=== PATIENT | female | born 1965 | race Caucasian/White ===

== ENCOUNTER 2016-03-23 09:36 | Day surgery (SDC) | payer BC ==
[2016-03-18 10:59] VITALS: BMI 24.4
[~2016-03-23 09:36] MED LIST: DEXAMETHASONE SOD PHOSPHATE 10 MG/ML 1 ML VIAL IV ONE; DEXAMETHASONE SOD PHOSPHATE 4 MG/ML 1 ML VIAL IV ONE; FAMOTIDINE 20 MG/2 ML VIAL IV ONE; LACTATED RINGERS 1,000 ML IV SCH; LIDOCAINE 1% 20 ML VIAL (10MG/ML) FOR IV START INTRADERMA PRN; ONDANSETRON 4 MG/2 ML VIAL IVP ONE; SCOPOLAMINE 1.5MG/72HR PATCH TRANSDERM ONE; ceFAZolin 1,000 MG in DEXTROSE/WATER 1 50ML.BAG IV ONE
[2016-03-23] MEDS ORDERED: LIDOCAINE 1% 20 ML VIAL (10MG/ML) FOR IV START INTRADERMA ONE (11:29)
[2016-03-23] MEDS: OXYMETAZOLINE 0.05% NASL SPRAY 15 ML NASAL ONE ×4 (11:30→11:45)
[2016-03-23] MEDS ORDERED: MIDAZOLAM 2 MG/2 ML VIAL ONE (11:46)
[2016-03-23] MEDS ORDERED: fentaNYL (PF) 50 MCG/ML 2 ML AMP ONE (11:46)
[2016-03-23] MEDS ORDERED: PROPOFOL 10 MG/ML 20 ML VIAL IV ONE (11:46)
[2016-03-23] MEDS ORDERED: LIDOCAINE 1% INJ 10MG/ML (20 ML MDV) ONE (11:46)
[2016-03-23] MEDS ORDERED: SUCCINYLCHOLINE CHLORIDE 100 MG/5 ML SYR IV ONE (11:46)
[2016-03-23] MEDS ORDERED: LIDOCAINE 1%-EPI 1:100,000 20 ML VIAL SUBMUCOSAL ONE (12:09)
--- NOTE | 2016-03-23 12:57 | P.OP ---
Date of Procedure: 03/23/16 Preoperative Diagnosis: Deviated nasal septum Inferior turbinate hypertrophy Chronic sinusitis Postoperative Diagnosis: Same Procedure(s) Performed: Septoplasty Outfracture and submucous resection of the inferior turbinates Bilateral endoscopic sinus surgery including bilateral maxillary antrostomy and left ra bullectomy Anesthesia: TIO Surgeon: Abdoulaye Bower Estimated Blood Loss (ml): 10 Pathology: other (Nasal septal bone and cartilage and sinus contents) Condition: stable Disposition: PACU Indications for Procedure: This is a 50-year-old white female whose had difficulties with chronic nasal airway obstruction and congestion as well as intermittent bilateral maxillary pain and pressure but left greater than right Operative Findings: Bilateral nasal septal deviation, inferior turbinate hypertrophy, obstruction of both maxillary ostia and 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 The patient underwent induction of general anesthesia with oral endotracheal intubation without difficulty. Patient prepped and draped in usual aseptic fashion. 1% lidocaine with [id number] epinephrine was infused submucosally both sides nasal septum lateral nasal wall and anterior tips the middle turbinates bilaterally. The orbits were in the operating field for monitoring throughout the case and computed tomography scan was on the computer screen for review throughout the case also. The inferior turbinates were infractured with the Raymond elevator partial submucous resection inferior turbinates was performed bilaterally with the Coblation device therefore ablating a portion of the submucosal soft tissue and then the inferior turbinates were outfractured with the Raymond elevator. A left hemitransfixion incision was made and mucoperichondrial mucoperiosteal flap on the left elevated. Bony cartilaginous junction was disarticulated and mucoperiosteal flap on the right was elevated. Bony nasal septal deformities were removed Delfina forceps and an inferior cartilaginous strip was removed leaving a full 1.5 cm caudal strut. Checking intranasally this corrected the nasoseptal deformities and the hemitransfixion incision was closed running 4-0 chromic suture. 0 endoscopic examination is performed bilaterally. Beginning on the left the middle turbinate was medialized with the Walton elevator. There was a ra bullosa cell noted and the lateral one half of the middle turbinate was removed with microdebrider. Natural ostium was located with a ballpoint probe and infundibulotomy was performed followed by uncinectomy. Maxillary antrostomy was enlarged at the expense of the anterior posterior fontanelle taking care anteriorly not to injure the lacrimal bone. The ethmoid bulla was overhanging and therefore this was also opened. Attention was then turned to the right where the middle turbinate was medialized with the Walton elevator. Maxillary antrostomy was performed as it was on the left as well as the infundibulotomy and uncinectomy. Once this was completed a pledget of nasal pore nasal dressing was white middle meatus under direct visualization and bilateral Bardales airway splints coated bacitracin ointment were placed in nasal cavities and sutured trans-septally with a 4-0 nylon suture. The patient was suctioned in oral gastric fashion. Beta katarzyna emerge from general anesthesia having tolerated the procedure well was extubated operating suite and transferred to postop recovery area in satisfactory condition.
[2016-03-23 12:59] VITALS: TEMP 97.4
[2016-03-23] MEDS: HYDROmorphone 1 MG/ML 1 ML SYRINGE IVP PRN ×2 (13:14→13:31)
[2016-03-23 13:17] VITALS: RESP 16
[2016-03-23 15:00] VITALS: BP 133/85; PULSE 79
[2016-03-23] MEDS ORDERED: HYDROcodone/APAP 7.5-325MG 1 EACH TAB PO ONE (15:10)
== END 2016-03-23 15:49 | disposition home or self-care (01) ==
LOC: OR 09:36
PROVIDERS: ATTEND Otolaryngology
DX: J34.2 Deviated nasal septum (principal); J34.3 Hypertrophy of nasal turbinates; J32.9 Chronic sinusitis, unspecified; Z79.2 Long term (current) use of antibiotics; Z79.1 Long term (current) use of non-steroidal anti-inflammatories (NSAID); Z79.899 Other long term (current) drug therapy; Z87.891 Personal history of nicotine dependence
CPT/HCPCS: 81025; 88305; 88300; 30520; 30140; 31256; J2250; J1100; J2405; J2001; J3010; J1170; J0690; J0330; J2704

== ENCOUNTER → 2017-05-17 | Outpatient (CLI) | payer BC ==
--- NOTE | 2017-05-18 16:14 | BD ---
EXAMINATION TYPE: MG DEXA axial skeleton. DATE OF EXAM: 05/17/2017 COMPARISON: NONE CLINICAL HISTORY: 51-year-old female postmenopausal screening, osteoarthritis Height: 5 FT 1/2IN Weight: 130 FRAX RISK QUESTIONS: Alcohol (3 or more units per day): NO Family History (Parent hip fracture): NO Glucocorticoids (More than 3mos): NO (Ex: prednisone, prednisolone, methylprednisolone, dexamethasone, and hydrocortisone). History of Fracture in Adulthood: NO Secondary Osteoporosis: 1. Type 1 Diabetes: NO 2. Hyperthyroidism: NO 3. Menopause before 45: NO 4. Malnutrition: NO 5. Chronic liver disease: NO Rheumatoid Arthritis: NO Current Tobacco Use: NO RISK FACTORS HISTORY OF: Family History of Osteoporosis: YES Active: YES Postmenopausal woman: NO If Premenopausal, do you have irregular periods: YES MEDICATIONS: Thyroid Medications: YES Which medication: LEVOTHYROXINE How Lon YEAR Additional Medications: LEVOTHYROXINE Additional History: EXAM MEASUREMENTS: Bone mineral densitometry was performed using the [employer]. Bone mineral density as measured about the Lumbar spine is: ----- L1-L4(G/cm2): 0.988 T Score Values are as follows: ----- L2: -1.3 ----- L3: -1.7 ----- L4: -2.1 ----- L1-L4: -1.6 BASELINE Bone mineral density about the R hip (g/cm2): 0.804 Bone mineral density about the L hip (g/cm2): 0.762 T Score values are as follows: -----R Neck: -1.7 -----L Neck: -2.0 -----R Total: -1.3 -----L Total: -1.6 BASELINE IMPRESSION: Osteopenia (T Score between -2.5 and -1). There is slightly increased risk of fracture and the patient may be considered for treatment. Re-Screen 2-5 years. NOTE: T-SCORE=SD OF THE YOUNG ADULT MEAN.
--- NOTE | 2017-05-19 09:57 | MM ---
Reason for exam: screening (asymptomatic). Last mammogram was performed 2 years ago. History: Took hormonal contraceptives for 15 years. Physical Findings: A clinical breast exam by your physician is recommended on an annual basis and results should be correlated with mammographic findings. MG Screening Mammo Implant/CAD Bilateral CC, MLO, and ID view(s) were taken. Prior study comparison: May 13, 2015, bilateral MG screening mammo implant/CAD. September 08, 2009, bilateral digital screening mammogram. The breast tissue is heterogeneously dense. This may lower the sensitivity of mammography. Bilateral retropectoral silicome implants. No significant changes when compared with prior studies. ASSESSMENT: Negative, BI-RAD 1 RECOMMENDATION: Routine screening mammogram of both breasts in 1 year.
== END | disposition home or self-care (01) ==
LOC: RADMAMWWP 15:35
PROVIDERS: ATTEND Family Medicine
DX: Z12.31 Encounter for screening mammogram for malignant neoplasm of breast (principal); M85.80 Other specified disorders of bone density and structure, unspecified site
CPT/HCPCS: 77067; 77080

== ENCOUNTER → 2017-11-10 | Outpatient (CLI) | payer BC ==
[~2017-11-10] MED LIST changes: -DEXAMETHASONE SOD PHOSPHATE 10 MG/ML 1 ML VIAL IV ONE; -DEXAMETHASONE SOD PHOSPHATE 4 MG/ML 1 ML VIAL IV ONE; -FAMOTIDINE 20 MG/2 ML VIAL IV ONE; -LACTATED RINGERS 1,000 ML IV SCH; -LIDOCAINE 1% 20 ML VIAL (10MG/ML) FOR IV START INTRADERMA PRN; -ONDANSETRON 4 MG/2 ML VIAL IVP ONE; -SCOPOLAMINE 1.5MG/72HR PATCH TRANSDERM ONE; +SODIUM CHLORIDE 0.9% 500 ML in EMPTY BAG 1 BAG IV PRN; +ZOLEDRONIC ACID 5 MG in SODIUM CHLORIDE 0.9% 100 ML IV NR; -ceFAZolin 1,000 MG in DEXTROSE/WATER 1 50ML.BAG IV ONE
[2017-11-10 09:42] VITALS: BP 107/79; PULSE 80; RESP 16; TEMP 98.1
== END | disposition home or self-care (01) ==
LOC: PROCWHC3 09:01
PROVIDERS: ATTEND Family Medicine
DX: M81.0 Age-related osteoporosis without current pathological fracture (principal); M19.90 Unspecified osteoarthritis, unspecified site
CPT/HCPCS: 96365; J3489

== ENCOUNTER → 2019-07-03 | Outpatient (CLI) | payer BC ==
--- NOTE | 2019-07-03 12:00 | ECHOS ---
Referral Reason:Atypical Chest Pain R07.89 MEASUREMENTS -------- HEIGHT: 152.4 cm WEIGHT: 59.0 kg BP: RVIDd: 2.5 cm (< 3.3) IVSd: 1.0 cm (0.6 - 1.1) LVIDd: 3.4 cm (3.9 - 5.3) LVPWd: 1.1 cm (0.6 - 1.1) IVSs: 1.5 cm LVIDs: 2.2 cm LVPWs: 1.6 cm LAESV Index (A-L): 12.54 ml/m Ao Diam: 2.7 cm (2.0 - 3.7) AV Cusp: 2.0 cm (1.5 - 2.6) MV EXCURSION: 14.577 mm (> 18.000) MV EF SLOPE: 99 mm/s (70 - 150) EPSS: 0.3 cm MV E Blue: 0.68 m/s MV DecT: 206 ms MV A Blue: 0.65 m/s MV E/A Ratio: 1.04 RAP: 5.00 mmHg RVSP: 21.42 mmHg FINDINGS -------- Sinus rhythm. This was a technically good study. The left ventricular size is normal. Left ventricular wall thickness is normal. Overall left vent ricular systolic function is normal with, an EF between 55 - 60 %. The diastolic filling pattern is normal for the age of the patient 9.63. The right ventricle is normal in size. Normal LA size by volume 22+/-6 ml/m2. The right atrial size is normal. Interatrial and interventricular septum intact. The aortic valve is trileaflet and appears structurally normal. There is no evidence of aortic regu rgitation. There is no evidence of aortic stenosis. Mild mitral regurgitation is present. Mild tricuspid regurgitation present. There is no evidence of pulmonary hypertension. The right v entricular systolic pressure, as measured by Doppler, is 21.42mmHg. Trace/mild (physiologic) pulmonic regurgitation. The aortic root size is normal. Normal inferior vena cava with normal inspiratory collapse consistent with estimated right atrial pre ssure of 5 mmHg. There is no pericardial effusion. CONCLUSIONS -------- 1. Sinus rhythm. 2. This was a technically good study. 3. The left ventricular size is normal. 4. Left ventricular wall thickness is normal. 5. Overall left ventricular systolic function is normal with, an EF between 55 - 60 %. 6. The diastolic filling pattern is normal for the age of the patient 9.63 7. The right ventricle is normal in size. 8. Normal LA size by volume 22+/-6 ml/m2. 9. The right atrial size is normal. 10. Interatrial and interventricular septum intact. 11. The aortic valve is trileaflet and appears structurally normal. 12. There is no evidence of aortic regurgitation. 13. There is no evidence of aortic stenosis. 14. Mild mitral regurgitation is present. 15. Mild tricuspid regurgitation present. 16. There is no evidence of pulmonary hypertension. 17. The right ventricular systolic pressure, as measured by Doppler, is 21.42mmHg. 18. Trace/mild (physiologic) pulmonic regurgitation. 19. The aortic root size is normal. 20. Normal inferior vena cava with normal inspiratory collapse consistent with estimated right atrial pressure of 5 mmHg. 21. There is no pericardial effusion. HIDE HOUSE SUPERVISOR: Marylin Aden RDCS
--- NOTE | 2019-07-03 16:37 | EST ---
EXERCISE STRESS AGE: 53 SEX: F HT: 60" WT: 130 PROTOCOL: Carlos STAGE: 3 DURATION OF EXERCISE: 9:00 HEART RATE REST: 75 BLOOD PRESSURE REST: 121/82 MAXIMUM HEART RATE ACHIEVED: 157 MAXIMUM BLOOD PRESSURE: 184/86 85% MPHR: 142 100% MPHR: 167 METS: CLINICAL INFORMATION: Baseline EKG revealed normal sinus rhythm without significant ST-T changes. Minor nonspecific inferolateral ST abnormality was noted. Patient walked for 9 minutes, achieved a maximal heart rate of 157 beats per minute, developed fatigue and shortness of breath but did not have any angina or arrhythmia. EKG review did not reveal any clear-cut evidence to suggest ischemia. There are minor changes to begin with and these seemed to persist. Subjectively patient was asymptomatic. Fair exercise capacity was noted. FINAL IMPRESSION: 1. Fair exercise capacity. 2. There are minor resting changes to begin with. Technically making this an inconclusive stress test but the patient had absolutely no symptoms and EKG did not reveal any new significant changes. I will therefore call this as a negative stress test with some minor resting EKG changes. There is no evidence of ischemia or arrhythmia or angina. MMODL / IJN: [id number] /
== END | disposition home or self-care (01) ==
LOC: RADECHMAIN 08:35
PROVIDERS: ATTEND Family Medicine
DX: I08.8 Other rheumatic multiple valve diseases (principal); R07.89 Other chest pain
CPT/HCPCS: 93017; 93306

== ENCOUNTER → 2021-06-21 | Outpatient (CLI) | payer BC ==
--- NOTE | 2021-06-21 08:32 | CT ---
EXAMINATION TYPE: CT sinus wo con DATE OF EXAM: 06/21/2021 COMPARISON: CT dated 11/12/2014 HISTORY: Chronic sinusitis. CT DLP: 624.2 mGycm. Automated Exposure Control for Dose Reduction was Utilized. TECHNIQUE: CT scan of the sinuses is performed without contrast, axial images are obtained, coronal r eformatted images are also reviewed. FINDINGS: Interval endoscopic sinus surgery with bilateral maxillary antrostomy, uncinectomy, partial turbinect iza and partial ethmoidectomy. Slightly dilated bony nasal septum convex to the right side. Minimal m ucosal thickening of the nasal fossa bilaterally. Paradoxical middle turbinates. Grossly unremarkable inferior turbinates. Circumferential polypoidal mucosal thickening of the left maxillary sinus. Milder polypoidal mucosal thickening of the right maxillary sinus mainly inferiorly. Clear remainder of the ethmoid air cells. Unremarkable frontal sinus and sphenoid sinus. Clear sphenoethmoidal recesses. Clear visualized portion of the mastoid air cells. Unremarkable visualized portion of the brain. Subt le thickening of the extraocular muscles, please correlate clinically for underlying pathology. IMPRESSION: Mucosal thickening of the maxillary sinuses more on the left side with postoperative changes as jacoob led above, please correlate clinically. Other findings as detailed above.
== END | disposition home or self-care (01) ==
LOC: RADCTMAIN 06:49
PROVIDERS: ATTEND Otolaryngology
DX: J32.9 Chronic sinusitis, unspecified (principal)
CPT/HCPCS: 70486

== ENCOUNTER → 2022-03-15 | Outpatient (CLI) | payer BC ==
--- NOTE | 2022-03-15 08:20 | MM ---
Reason for Exam: Screening (asymptomatic). Last mammogram was performed 4 year(s) and 9 month(s) ago. Patient History: Menarche at age 11. First Full-Term at age 21. Postmenopausal. Patient has history of breast feeding. Patient used Hormonal Contraceptives for 15 years. Risk Values: Jessy 5 year model risk: 1.2%. NCI Lifetime model risk: 7.9%. Prior Study Comparison: 09/08/2009 Bilateral Screening Mammogram, [facility]. 05/13/2015 Bilateral Screening Mammogram, [facility]. 05/17/2017 Bilateral Screening Mammogram, [facility]. Tissue Density: The breast tissue is heterogeneously dense. This may lower the sensitivity of mammography. Findings: Analyzed By CAD. There is no suspicious group of microcalcifications or new suspicious mass in either breast. Bilateral retropectoral silicone implants. Overall Assessment: Benign, BI-RAD 2 Management: Screening Mammogram of both breasts in 1 year. A clinical breast exam by your physician is recommended on an annual basis and results should be correlated with mammographic findings. Electronically signed and approved by: Colten Mathis D.O.
== END | disposition home or self-care (01) ==
LOC: RADMAMWWP 07:01
PROVIDERS: ATTEND Family Medicine
DX: Z12.31 Encounter for screening mammogram for malignant neoplasm of breast (principal); Z78.0 Asymptomatic menopausal state
CPT/HCPCS: 77063; 77067

== ENCOUNTER → 2023-03-17 | Outpatient (CLI) | payer BC ==
--- NOTE | 2023-03-17 10:08 | MM ---
Reason for Exam: Screening (asymptomatic). Last mammogram was performed 1 year(s) and 1 month(s) ago. Patient History: Menarche at age 11. First Full-Term at age 21. Postmenopausal. Patient has history of breast feeding. Currently using Estrogen, starting at age 56. Patient used Hormonal Contraceptives for 15 years. Risk Values: Jessy 5 year model risk: 1.3%. NCI Lifetime model risk: 7.7%. Prior Study Comparison: 05/13/2015 Bilateral Screening Mammogram, [facility]. 05/17/2017 Bilateral Screening Mammogram, [facility]. 03/15/2022 Bilateral MG 3D screen mammo imp/cad., [facility]. Tissue Density: There are scattered fibroglandular densities. Findings: Analyzed By CAD. There is no suspicious group of microcalcifications or new suspicious mass in either breast. Bilateral implants are intact. Overall Assessment: Benign, BI-RAD 2 Management: Screening Mammogram of both breasts in 1 year. . Patient should continue monthly self-breast exams. A clinical breast exam by your physician is recommended on an annual basis. This exam should not preclude additional follow-up of suspicious palpable abnormalities. Note on Jessy scores and lifetime risk: 1. A Jessy score greater than 3% is considered moderate risk. If this is the case, consider specialist referral to assess eligibility for a risk reducing agent. 2. If overall lifetime risk for the development of breast cancer is 20% or higher, the patient may qualify for future screening with alternating mammogram and breast MRI. Electronically signed and approved by: Mukesh Lara M.D. Radiologis
--- NOTE | 2023-03-17 12:40 | BD ---
EXAMINATION TYPE: Axial Bone Density DATE OF EXAM: 03/17/2023 CLINICAL HISTORY: 57 years old Female. ICD-10 CODE: M810 OSTEO Height: 61 Weight: 128 FRAX RISK QUESTIONS: Family History (Parent hip fracture): no History of Fracture in Adulthood: no Secondary Osteoporosis: no RISK FACTORS HISTORY OF: Surgery to Spine/Hip(right/left)/Wrist (right/left): no MEDICATIONS: Thyroid Medications: yes Which medication: Levothyroxine How Lon+ years EXAM MEASUREMENTS: Bone mineral densitometry was performed using the [employer] System. Bone mineral density as measured about the Lumbar spine is: ----- L1-L4(G/cm2): 0.989 T Score Values are as follows: ----- L1: -1.3 ----- L2: -1.4 ----- L3: -1.4 ----- L4: -2.3 ----- L1-L4: -1.6 Z Score Values are as follows: ----- L1: -0.1 ----- L2: -0.2 ----- L3: -0.2 ----- L4: -1.1 ----- L1-L4: -0.4 Bone mineral density has: Increased 0.1% since study of: 05/17/2017 Bone mineral density about the R hip (g/cm2): 0.807 Bone mineral density about the L hip (g/cm2): 0.848 T Score values are as follows: -----R Neck: -2.1 -----L Neck: -1.9 -----R Total: -1.6 -----L Total: -1.3 Z Score values are as follows: -----R Neck: -0.9 -----L Neck: -0.7 -----R Total: -0.7 -----L Total: -0.3 Bone mineral density has: Increased 0.6% since study of: 05/17/2017 FRAX%s: The graph provided illustrates a 9.0% chance for a major osteoporotic fx and a 1.3% chance fo r the hips probability for fx in 10 years time. IMPRESSION: Osteopenia (T Score between -2.5 and -1). There is slightly increased risk of fracture and the patient may be considered for treatment. Re-Screen 2-5 years. NOTE: T-SCORE=SD OF THE YOUNG ADULT MEAN.
== END | disposition home or self-care (01) ==
LOC: RADMAMWWP 06:58
PROVIDERS: ATTEND Family Medicine
DX: Z12.31 Encounter for screening mammogram for malignant neoplasm of breast (principal); M85.89 Other specified disorders of bone density and structure, multiple sites; M81.0 Age-related osteoporosis without current pathological fracture; Z78.0 Asymptomatic menopausal state; Z92.0 Personal history of contraception; Z79.82 Long term (current) use of aspirin
CPT/HCPCS: 77063; 77067; 77080

== ENCOUNTER → 2023-04-13 | Outpatient (CLI) | payer BC ==
--- NOTE | 2023-04-13 12:13 | XR ---
EXAMINATION TYPE: XR abdomen 1V DATE OF EXAM: 04/13/2023 COMPARISON: None INDICATION: Abdomen pain and nausea probably TECHNIQUE: Single view abdomen FINDINGS: There is a normal bowel gas pattern. No free air is evident. No suspicious air-fluid levels or differ ential air-fluid levels are present. Fecal debris is throughout the colon. Psoas margins are normal. No organomegaly is present. IMPRESSION: 1. Mild fecal retention.
== END | disposition home or self-care (01) ==
LOC: RADXRMAIN 11:54
PROVIDERS: ATTEND Family Medicine
DX: K59.00 Constipation, unspecified (principal); R10.9 Unspecified abdominal pain
CPT/HCPCS: 74018

== ENCOUNTER → 2023-05-01 | Outpatient (CLI) | payer BC ==
--- NOTE | 2023-05-01 10:13 | US ---
EXAMINATION TYPE: US gallbladder DATE OF EXAM: 05/01/2023 COMPARISON: NONE CLINICAL INDICATION: Female, 57 years old with history of R10.84 ABD PAIN; Abdominal pain, N/V. TECHNIQUE: Multiple sonographic images of the right upper quadrant are obtained. FINDINGS: EXAM MEASUREMENTS: Liver Length: 15.2 cm Gallbladder Wall: 0.24 cm CBD: 0.38 cm Right Kidney: 10.1 x 5.2 x 3.8 cm CUSTODIAL ENGINEER NOTES: Limited due to gas. Pancreas: Slightly limited due to gas. Liver: Appears wnl Gallbladder: Appears wnl Evidence for sonographic Pruitt's sign: No CBD: Appears wnl Right Kidney: No hydronephrosis or masses seen IMPRESSION: No evidence for acute process.
== END | disposition home or self-care (01) ==
LOC: RADUSWWP 09:22
PROVIDERS: ATTEND Family Medicine
DX: R10.84 Generalized abdominal pain (principal)
CPT/HCPCS: 76705